=== PATIENT | male | born 1960 | race Caucasian/White ===

== ENCOUNTER 2018-04-08 22:38 | Inpatient (IN) | payer OTHER ==
[2018-04-08 23:41] LABS: ADD MAN DIFF? NO
[2018-04-08 23:42] LABS: ABNORMAL IP MESSAGE 1; BASOPHILS % 0.2 % (0.0-2.0); EOSINOPHILS # 0.1 10^3/ul (0.0-0.5); EOSINOPHILS % 0.5 % (0.0-7.0); HEMATOCRIT 23.7 % (42.0-52.0); LYMPHOCYTES # 1.8 10^3/ul (0.8-2.9); LYMPHOCYTES % 13.4 % (15.0-51.0); MEAN CORPUSCULAR HEMOGLOBIN 23.5 pg (29.0-33.0); MEAN CORPUSCULAR HGB CONC 29.5 g/dl (32.0-37.0); MEAN CORPUSCULAR VOLUME 79.5 fl (82.0-101.0); MONOCYTE # 0.9 10^3/ul (0.3-0.9); MONOCYTES % 6.3 % (0.0-11.0); NEUTROPHIL # 10.6 10^3/ul (1.6-7.5); NEUTROPHILS % 78.7 % (39.0-77.0); PLATELET COUNT 80 10^3/UL (140-415); POSITIVE DIFF @See below; RED BLOOD COUNT 2.98 10^6/ul (4.70-6.10); RED CELL DISTRIBUTION WIDTH 20.8 % (11.5-14.5)
[2018-04-08 23:42] LABS: WHITE BLOOD COUNT 13.5 10^3/ul (4.8-10.8)
[2018-04-08] MEDS: SOD CHLORIDE 0.9% 500 ML IV (23:54)
[2018-04-08] MEDS: PANTOPRAZOLE IV 80 MG in SOD CHLORIDE 0.9% 100 ML IVPB (23:55)
[2018-04-08] MEDS: OCTREOTIDE 50 MCG in SOD CHLORIDE 0.9% 25 ML IVPB (23:55)
[2018-04-08] MEDS: PANTOPRAZOLE IV 80 MG in SOD CHLORIDE 0.9% 100 ML IV (23:55)
[2018-04-08] MEDS: ONDANSETRON 4 MG INJ IV (23:56)
[2018-04-09] MEDS: OCTREOTIDE 500 MCG in SOD CHLORIDE 0.9% 49 ML IV (00:05)
[2018-04-09 00:06] LABS: ALANINE AMINOTRANSFERASE 24 IU/L (13-69); ALBUMIN 2.3 g/dl (3.3-4.9); ALKALINE PHOSPHATASE 74 IU/L (42-121); ANION GAP 13 (8-16); ASPARTATE AMINO TRANSFERASE 26 IU/L (15-46); BILIRUBIN,INDIRECT 1.6 mg/dl (0-1.1); BILIRUBIN,TOTAL 1.6 mg/dl (0.2-1.3); BLOOD UREA NITROGEN 14 mg/dl (7-20); CALCIUM 7.2 mg/dl (8.4-10.2); CARBON DIOXIDE 19 mmol/L (21-31); CHLORIDE 110 mmol/L (97-110); CREATININE 0.78 mg/dl (0.61-1.24); GLUCOSE 153 mg/dl (70-220); INR 2.03; POTASSIUM 3.7 mmol/L (3.5-5.1); PROTIME 23.4 Sec (11.9-14.9); PT RATIO 1.8; SODIUM 138 mmol/L (135-144); TOTAL PROTEIN 6.1 g/dl (6.1-8.1)
[2018-04-09 00:07] LABS: PARTIAL THROMBOPLASTIN TIME 40.4 Sec (25.0-35.0)
[2018-04-09] MEDS ORDERED: ACETAMINOPHEN 325 MG TAB PO (02:00)
[2018-04-09] MEDS ORDERED: ONDANSETRON 4 MG INJ IV ×2 (02:00→02:30)
[2018-04-09] MEDS: SOD CHLORIDE 0.9% 1,000 ML IV ×2 (02:03→07:10)
[2018-04-09] MEDS ORDERED: NACL 0.9% 3 ML SYG IV (02:30)
[2018-04-09] MEDS ORDERED: ACETAMINOPHEN 650 MG SUPP PR (02:30)
[2018-04-09] MEDS ORDERED: METOCLOPRAMIDE 10 MG INJ IV (02:30)
[2018-04-09 02:40] LABS: HAAIG REFLEX REFLEX FILED
[2018-04-09 02:56] LABS: ETHANOL < 10.0 mg/dl
[2018-04-09 05:13] LABS: HEPATITIS B SURFACE ANTIGEN NEGATIVE (NEGATIVE)
[2018-04-09 05:31] LABS: HEPATITIS B CORE ANTIBODY NEGATIVE (NEGATIVE); HEPATITIS C VIRAL ANTIBODY NEGATIVE (NEGATIVE)
[2018-04-09] MEDS ORDERED: LIDOCAINE 2% (SDV) 5 ML INJ (07:00)
[2018-04-09] MEDS ORDERED: CEFAZOLIN 1 GM INJ (07:00)
[2018-04-09] MEDS: PHYTONADIONE 10 MG/ML INJ IM (07:01)
[2018-04-09] MEDS ORDERED: SUCCINYLCHOLINE CHLORIDE 100 MG/5 ML SYG IV (08:44)
[2018-04-09] MEDS ORDERED: PROPOFOL 20 ML (08:44)
[2018-04-09] MEDS ORDERED: ROCURONIUM 50 MG INJ (08:44)
[2018-04-09] MEDS ORDERED: EPHEDrine 50 MG INJ (08:45)
[2018-04-09] MEDS ORDERED: morphine 2 MG INJ IV ×2 (09:00)
[2018-04-09] MEDS ORDERED: hydrALAzine 20 MG INJ IV (09:00)
[2018-04-09] MEDS ORDERED: morphine 10 MG INJ IV (09:00)
[2018-04-09] MEDS ORDERED: PANTOPRAZOLE IV 80 MG in SOD CHLORIDE 0.9% 100 ML IV ×2 (09:00→12:00)
[2018-04-09] MEDS ORDERED: EPHEDrine SULFATE 50 MG/5 ML SYG IV (09:00)
[2018-04-09] MEDS ORDERED: LABETALOL HCL 20MG INJ IV (09:00)
[2018-04-09] MEDS ORDERED: MIDAZOLAM 1 MG/ML 2 ML INJ (09:46)
[2018-04-09] MEDS: MIDAZOLAM 1 MG/ML 2 ML INJ IV (09:56)
[2018-04-09 10:00] LABS: ADD MAN DIFF? NO
[2018-04-09 10:02] LABS: ABNORMAL IP MESSAGE 1; BASOPHIL # 0.1 10^3/ul (0.0-0.1); BASOPHILS % 0.2 % (0.0-2.0); EOSINOPHILS # 0.1 10^3/ul (0.0-0.5); EOSINOPHILS % 0.3 % (0.0-7.0); HEMATOCRIT 27.4 % (42.0-52.0); HEMOGLOBIN 8.4 g/dl (14.0-18.0); LYMPHOCYTES # 6.6 10^3/ul (0.8-2.9); LYMPHOCYTES % 24.4 % (15.0-51.0); MEAN CORPUSCULAR HEMOGLOBIN 25.2 pg (29.0-33.0); MEAN CORPUSCULAR HGB CONC 30.7 g/dl (32.0-37.0); MEAN CORPUSCULAR VOLUME 82.3 fl (82.0-101.0); MEAN PLATELET VOLUME 10.3 fl (7.4-10.4); MONOCYTE # 1.7 10^3/ul (0.3-0.9); MONOCYTES % 6.3 % (0.0-11.0); NEUTROPHIL # 17.8 10^3/ul (1.6-7.5); NEUTROPHILS % 66.1 % (39.0-77.0); NUCLEATED RED BLOOD CELLS # 0.1 10^3/ul (0.0-0.0); NUCLEATED RED BLOOD CELLS% 0.5 /100WBC (0.0-0.0); PLATELET COUNT 107 10^3/UL (140-415); RED BLOOD COUNT 3.33 10^6/ul (4.70-6.10); RED CELL DISTRIBUTION WIDTH 18.8 % (11.5-14.5)
[2018-04-09 10:02] LABS: WHITE BLOOD COUNT 26.9 10^3/ul (4.8-10.8)
[2018-04-09 10:18] LABS: HEMOGLOBIN A1C 5.2 % (0-5.9)
[2018-04-09] MEDS: OCTREOTIDE 1 MG in DEXTROSE 5% 95 ML IV ×2 (10:18→10:32)
[2018-04-09 10:21] LABS: IRON 41 ug/dl (35-150)
[2018-04-09 10:22] LABS: INR 2.05; PROTIME 23.6 Sec (11.9-14.9); PT RATIO 1.8
[2018-04-09 10:24] LABS: ALANINE AMINOTRANSFERASE 28 IU/L (13-69); ALBUMIN 2.3 g/dl (3.3-4.9); ALBUMIN/GLOBULIN RATIO 0.57; ALKALINE PHOSPHATASE 84 IU/L (42-121); ANION GAP 14 (8-16); ASPARTATE AMINO TRANSFERASE 30 IU/L (15-46); BILIRUBIN,INDIRECT 1.8 mg/dl (0-1.1); BILIRUBIN,TOTAL 1.8 mg/dl (0.2-1.3); BLOOD UREA NITROGEN 18 mg/dl (7-20); CALCIUM 6.2 mg/dl (8.4-10.2); CARBON DIOXIDE 16 mmol/L (21-31); CHLORIDE 118 mmol/L (97-110); CHOLESTEROL 75 mg/dl (100-200); CREATININE 0.86 mg/dl (0.61-1.24); GLUCOSE 148 mg/dl (70-220); HDL CHOLESTEROL 25 mg/dl (30-78); LDL CHOLESTEROL,CALCULATED 29 mg/dl; MAGNESIUM 1.6 mg/dl (1.7-2.5); SODIUM 141 mmol/L (135-144); TOTAL PROTEIN 6.3 g/dl (6.1-8.1); TRIGLYCERIDES 103 mg/dl (0-149)
[2018-04-09] MEDS ORDERED: LORAZEPAM 2 MG INJ (10:24)
[2018-04-09 10:29] LABS: POTASSIUM 6.5 mmol/L (3.5-5.1)
[2018-04-09 10:31] LABS: % IRON SATURATION 15 % SAT (22-52); TOTAL IRON BINDING CAPACITY 282 ug/dl (241-421)
[2018-04-09] MEDS: LORAZEPAM 2 MG INJ IV ×2 (10:36→16:17)
[2018-04-09 11:22] LABS: AADO2 Arterial 610.9 mmHg (7.0-24.0); Allen Test ACCEPTAB; Arterial Base Excess -11.4 mmol/L (-3.0-3); Arterial Blood Gas Oxygen Sat 85.7 mmHG (95.0-98.0); Arterial COHb 0.4 % (0.0-3.0); Arterial Fraction of Oxyhgb 84.9 % (93.0-99.0); Arterial MetHb 0.5 % (0.0-1.5); Arterial Total Hemglobin 9.1 g/dl (12.0-18.0); Arterial pCO2 42.7 mmhg (35-45); MODE VENT - AC; Site Right Radial
[2018-04-09] MEDS: MIDAZOLAM (DRIP) 50 mg/50 mL 50 ML IV ×2 (11:29→16:27)
[2018-04-09] MEDS ORDERED: NA BICARBONATE 8.4% 50 ML SYG (11:34)
[2018-04-09] MEDS: NA BICARBONATE 8.4% 50 ML SYG IV (11:49)
[2018-04-09 11:56] LABS: CARCINOEMBRYONIC ANTIGEN 1.2 ng/ml (0.0-5.0)
[2018-04-09 12:01] LABS: ALPHA FETOPROTEIN 1.82 IU/L (0.00-7.21)
[2018-04-09] MEDS: MAGNESIUM SULFATE 2 GM/50 ML 50 ML IVPB (12:02)
[2018-04-09] MEDS: PANTOPRAZOLE IV 80 MG in SOD CHLORIDE 0.9% 100 ML IV ×2 (12:29→22:48)
[2018-04-09 12:56] LABS: THYROID STIMULATING HORMONE 0.563 MIU/L (0.465-4.680)
[2018-04-09] MEDS: NA POLYST SULFON 15 GM/60 ML BTL NGT (15:18)
[2018-04-09 15:35] LABS: POTASSIUM 7.3 mmol/L (3.5-5.1)
[2018-04-09] MEDS ORDERED: DEXTROSE 50% 50 ML SYRINGE IV (16:00)
[2018-04-09] MEDS: SODIUM BICARBONATE (IV ADD) 100 MEQ in DEXTROSE 5%-0.45% NACL 900 ML IV ×2 (16:14→22:49)
[2018-04-09 17:09] LABS: AADO2 Arterial 317.3 mmHg (7.0-24.0); Allen Test ACCEPTAB; Arterial Base Excess -7.7 mmol/L (-3.0-3); Arterial Blood Gas Oxygen Sat 99.4 mmHG (95.0-98.0); Arterial COHb 0.3 % (0.0-3.0); Arterial Fraction of Oxyhgb 98.6 % (93.0-99.0); Arterial HCO3 16.7 mmol/L (22.0-26.0); Arterial MetHb 0.5 % (0.0-1.5); Arterial Total Hemglobin 8.8 g/dl (12.0-18.0); Arterial pCO2 29.5 mmhg (35-45); MODE VENT - AC; Site Right Radial
[2018-04-09] MEDS: CALCIUM GLUCONATE 10% 1 GM in DEXTROSE 5% 100 ML IVPB (17:17)
[2018-04-09] MEDS: INSULIN REGULAR, HUMAN 100 UNIT/1 ML 3ML VIAL IVP (17:20)
[2018-04-09 18:01] LABS: ADD MAN DIFF? NO
[2018-04-09 18:04] LABS: ABNORMAL IP MESSAGE 1; BASOPHILS % 0.1 % (0.0-2.0); EOSINOPHILS % 0.1 % (0.0-7.0); HEMATOCRIT 24.8 % (42.0-52.0); HEMOGLOBIN 7.6 g/dl (14.0-18.0); LYMPHOCYTES # 2.3 10^3/ul (0.8-2.9); LYMPHOCYTES % 13.5 % (15.0-51.0); MEAN CORPUSCULAR HEMOGLOBIN 25.9 pg (29.0-33.0); MEAN CORPUSCULAR HGB CONC 30.6 g/dl (32.0-37.0); MEAN CORPUSCULAR VOLUME 84.4 fl (82.0-101.0); MONOCYTE # 1.3 10^3/ul (0.3-0.9); MONOCYTES % 7.4 % (0.0-11.0); NEUTROPHIL # 13.4 10^3/ul (1.6-7.5); NEUTROPHILS % 78.2 % (39.0-77.0); NUCLEATED RED BLOOD CELLS # 0.1 10^3/ul (0.0-0.0); NUCLEATED RED BLOOD CELLS% 0.5 /100WBC (0.0-0.0); POSITIVE DIFF @See below; RED BLOOD COUNT 2.94 10^6/ul (4.70-6.10); RED CELL DISTRIBUTION WIDTH 17.7 % (11.5-14.5)
[2018-04-09 18:04] LABS: WHITE BLOOD COUNT 17.1 10^3/ul (4.8-10.8)
[2018-04-09 18:12] LABS: PLATELET COUNT 76 10^3/UL (140-415)
[2018-04-09 19:37] LABS: IMMEDIATE SPIN CROSSMATCH 1
[2018-04-09 21:37] LABS: POTASSIUM 5.3 mmol/L (3.5-5.1)
[2018-04-10] MEDS: OCTREOTIDE 1 MG in DEXTROSE 5% 95 ML IV ×2 (00:53→16:48)
[2018-04-10] MEDS: MIDAZOLAM (DRIP) 50 mg/50 mL 50 ML IV ×3 (01:43→16:44)
[2018-04-10 01:50] LABS: ADD MAN DIFF? NO
[2018-04-10 01:59] LABS: ABNORMAL IP MESSAGE 1; BASOPHILS % 0.2 % (0.0-2.0); EOSINOPHILS % 0.3 % (0.0-7.0); HEMATOCRIT 27.6 % (42.0-52.0); LYMPHOCYTES # 1.7 10^3/ul (0.8-2.9); LYMPHOCYTES % 14.7 % (15.0-51.0); MEAN CORPUSCULAR HEMOGLOBIN 26.8 pg (29.0-33.0); MEAN CORPUSCULAR HGB CONC 32.6 g/dl (32.0-37.0); MEAN CORPUSCULAR VOLUME 82.1 fl (82.0-101.0); MONOCYTE # 1.1 10^3/ul (0.3-0.9); MONOCYTES % 9.8 % (0.0-11.0); NEUTROPHIL # 8.6 10^3/ul (1.6-7.5); NEUTROPHILS % 74.2 % (39.0-77.0); NUCLEATED RED BLOOD CELLS # 0.1 10^3/ul (0.0-0.0); NUCLEATED RED BLOOD CELLS% 0.4 /100WBC (0.0-0.0); POSITIVE DIFF @See below; RED BLOOD COUNT 3.36 10^6/ul (4.70-6.10); RED CELL DISTRIBUTION WIDTH 16.9 % (11.5-14.5)
[2018-04-10 01:59] LABS: WHITE BLOOD COUNT 11.5 10^3/ul (4.8-10.8)
[2018-04-10 02:01] LABS: PLATELET COUNT 58 10^3/UL (140-415)
[2018-04-10] MEDS: SOD CHLORIDE 0.9% 1,000 ML IV ×2 (02:03→10:54)
[2018-04-10] MEDS: morphine 2 MG INJ IV (04:34)
[2018-04-10 04:49] LABS: ADD MAN DIFF? NO
[2018-04-10 04:53] LABS: WHITE BLOOD COUNT 10.6 10^3/ul (4.8-10.8)
[2018-04-10 04:53] LABS: ABNORMAL IP MESSAGE 1; BASOPHILS % 0.2 % (0.0-2.0); EOSINOPHILS % 0.3 % (0.0-7.0); HEMATOCRIT 26.8 % (42.0-52.0); HEMOGLOBIN 8.7 g/dl (14.0-18.0); LYMPHOCYTES # 1.6 10^3/ul (0.8-2.9); LYMPHOCYTES % 14.9 % (15.0-51.0); MEAN CORPUSCULAR HEMOGLOBIN 26.7 pg (29.0-33.0); MEAN CORPUSCULAR HGB CONC 32.5 g/dl (32.0-37.0); MEAN CORPUSCULAR VOLUME 82.2 fl (82.0-101.0); MEAN PLATELET VOLUME 9.6 fl (7.4-10.4); MONOCYTES % 9.4 % (0.0-11.0); NEUTROPHIL # 7.9 10^3/ul (1.6-7.5); NEUTROPHILS % 74.4 % (39.0-77.0); NUCLEATED RED BLOOD CELLS # 0.1 10^3/ul (0.0-0.0); NUCLEATED RED BLOOD CELLS% 0.6 /100WBC (0.0-0.0); PLATELET COUNT 41 10^3/UL (140-415); POSITIVE DIFF @See below; RED BLOOD COUNT 3.26 10^6/ul (4.70-6.10); RED CELL DISTRIBUTION WIDTH 16.8 % (11.5-14.5)
[2018-04-10 05:12] LABS: INR 1.92; PROTIME 22.4 Sec (11.9-14.9); PT RATIO 1.8
[2018-04-10 05:24] LABS: ALANINE AMINOTRANSFERASE 25 IU/L (13-69); ALBUMIN 1.9 g/dl (3.3-4.9); ALBUMIN/GLOBULIN RATIO 0.54; ALKALINE PHOSPHATASE 52 IU/L (42-121); ANION GAP 11 (8-16); ASPARTATE AMINO TRANSFERASE 29 IU/L (15-46); BILIRUBIN,INDIRECT 2.1 mg/dl (0-1.1); BILIRUBIN,TOTAL 2.1 mg/dl (0.2-1.3); BLOOD UREA NITROGEN 34 mg/dl (7-20); CALCIUM 6.7 mg/dl (8.4-10.2); CARBON DIOXIDE 19 mmol/L (21-31); CHLORIDE 117 mmol/L (97-110); CREATININE 1.76 mg/dl (0.61-1.24); GLUCOSE 177 mg/dl (70-220); MAGNESIUM 2.2 mg/dl (1.7-2.5); POTASSIUM 4.7 mmol/L (3.5-5.1); SODIUM 142 mmol/L (135-144); TOTAL PROTEIN 5.4 g/dl (6.1-8.1)
[2018-04-10 06:53] LABS: TYPE AND SCREEN 1
[2018-04-10] MEDS: PANTOPRAZOLE IV 80 MG in SOD CHLORIDE 0.9% 100 ML IV ×3 (07:30→23:57)
[2018-04-10 07:40] LABS: AADO2 Arterial 189.6 mmHg (7.0-24.0); Allen Test ACCEPTAB; Arterial Base Excess -3.6 mmol/L (-3.0-3); Arterial Blood Gas Oxygen Sat 98.4 mmHG (95.0-98.0); Arterial COHb 0.3 % (0.0-3.0); Arterial Fraction of Oxyhgb 97.8 % (93.0-99.0); Arterial HCO3 19.4 mmol/L (22.0-26.0); Arterial MetHb 0.3 % (0.0-1.5); Arterial Total Hemglobin 9.8 g/dl (12.0-18.0); Arterial pCO2 28.1 mmhg (35-45); MODE VENT - AC; Site Right Radial
[2018-04-10 09:34] LABS: IMMEDIATE SPIN CROSSMATCH 1 8
[2018-04-10] MEDS: FUROSEMIDE 40 MG INJ IV (10:51)
[2018-04-10 11:16] LABS: LACTIC ACID 3.2 mmol/L (0.5-2.0)
[2018-04-10 12:41] LABS: HEMATOCRIT 25.5 % (42.0-52.0); HEMOGLOBIN 8.4 g/dl (14.0-18.0)
[2018-04-10] MEDS: PIPER-TAZO 3.375 GM IV (PMX) 100 ML IVPB ×3 (13:33→23:57)
[2018-04-10 16:02] LABS: ADD UMIC YES; UR ASCORBIC ACID NEGATIVE (NEGATIVE); UR BACTERIA FEW /HPF (NONE SEEN); UR BILIRUBIN (Dip) NEGATIVE (NEGATIVE); UR BLOOD (Dip) 3+ mg/dL (NEGATIVE); UR CLARITY CLEAR (CLEAR); UR COLOR YELLOW (YELLOW); UR GLUCOSE (Dip) NEGATIVE (NEGATIVE); UR KETONES (Dip) NEGATIVE (NEGATIVE); UR LEUKOCYTE ESTERASE (Dip) NEGATIVE Leu/ul (NEGATIVE); UR NITRITE (Dip) NEGATIVE (NEGATIVE); UR RBC 107 /HPF (0-5); UR SPECIFIC GRAVITY (Dip) 1.012 (1.003-1.030); UR TOTAL PROTEIN (Dip) NEGATIVE (NEGATIVE); UR UROBILINOGEN (Dip) NEGATIVE (NEGATIVE); UR WBC 8 /HPF (0-5)
[2018-04-10 16:09] LABS: SODIUM,URINE RANDOM 104 mmol/L (30-90)
[2018-04-10 16:18] LABS: CREATININE,URINE RANDOM 57.11 mg/dl (20-370)
[2018-04-10 16:18] LABS: AMPHETAMINE/METHAMPHETAMINE Negative (NEGATIVE); BARBITURATES Negative (NEGATIVE); BENZODIAZEPINES Positive (NEGATIVE); CANNABINOIDS Negative (NEGATIVE); COCAINE Negative (NEGATIVE); OPIATES Positive (NEGATIVE)
[2018-04-10] MEDS: PHYTONADIONE 10 MG/ML INJ SC (17:57)
[2018-04-10 18:47] LABS: HEMOGLOBIN 8.2 g/dl (14.0-18.0)
[2018-04-10 19:09] LABS: INR 1.63; PROTIME 19.7 Sec (11.9-14.9); PT RATIO 1.5
[2018-04-11] MEDS: MIDAZOLAM (DRIP) 50 mg/50 mL 50 ML IV ×3 (00:30→19:43)
[2018-04-11 01:18] LABS: HEMATOCRIT 23.8 % (42.0-52.0); HEMOGLOBIN 7.7 g/dl (14.0-18.0)
[2018-04-11] MEDS: PIPER-TAZO 3.375 GM IV (PMX) 100 ML IVPB ×3 (05:12→19:45)
[2018-04-11 05:27] LABS: AMMONIA 118 umol/l (9-30)
[2018-04-11 05:31] LABS: LACTIC ACID 2.7 mmol/L (0.5-2.0)
[2018-04-11 05:38] LABS: PROTIME 19.4 Sec (11.9-14.9); PT RATIO 1.5
[2018-04-11 06:21] LABS: ALANINE AMINOTRANSFERASE 25 IU/L (13-69); ALBUMIN 2.2 g/dl (3.3-4.9); ALBUMIN/GLOBULIN RATIO 0.66; ALKALINE PHOSPHATASE 50 IU/L (42-121); ANION GAP 15 (8-16); ASPARTATE AMINO TRANSFERASE 26 IU/L (15-46); BILIRUBIN,INDIRECT 1.7 mg/dl (0-1.1); BILIRUBIN,TOTAL 1.7 mg/dl (0.2-1.3); BLOOD UREA NITROGEN 51 mg/dl (7-20); CALCIUM 7.4 mg/dl (8.4-10.2); CARBON DIOXIDE 19 mmol/L (21-31); CHLORIDE 114 mmol/L (97-110); CREATININE 1.94 mg/dl (0.61-1.24); GLUCOSE 124 mg/dl (70-220); MAGNESIUM 2.3 mg/dl (1.7-2.5); POTASSIUM 4.2 mmol/L (3.5-5.1); SODIUM 144 mmol/L (135-144); TOTAL PROTEIN 5.5 g/dl (6.1-8.1)
[2018-04-11 07:02] LABS: ANION GAP 14 (8-16); BLOOD UREA NITROGEN 51 mg/dl (7-20); CALCIUM 7.3 mg/dl (8.4-10.2); CARBON DIOXIDE 20 mmol/L (21-31); CHLORIDE 114 mmol/L (97-110); CREATININE 1.94 mg/dl (0.61-1.24); GLUCOSE 127 mg/dl (70-220); PHOSPHORUS 4.3 mg/dl (2.5-4.9); POTASSIUM 4.2 mmol/L (3.5-5.1); SODIUM 144 mmol/L (135-144)
[2018-04-11 07:46] LABS: AADO2 Arterial 168.6 mmHg (7.0-24.0); Allen Test ACCEPTAB; Arterial Blood Gas Oxygen Sat 98.6 mmHG (95.0-98.0); Arterial COHb 0.3 % (0.0-3.0); Arterial Fraction of Oxyhgb 97.9 % (93.0-99.0); Arterial MetHb 0.4 % (0.0-1.5); Arterial Total Hemglobin 9.6 g/dl (12.0-18.0); Arterial pCO2 29.4 mmhg (35-45); MODE VENT - AC; Site Right Radial
[2018-04-11] MEDS: FUROSEMIDE 40 MG INJ IV (10:10)
[2018-04-11 11:16] LABS: ADD MAN DIFF? NO
[2018-04-11 11:18] LABS: ABNORMAL IP MESSAGE 1; BASOPHILS % 0.4 % (0.0-2.0); EOSINOPHILS # 0.1 10^3/ul (0.0-0.5); EOSINOPHILS % 1.6 % (0.0-7.0); HEMATOCRIT 29.5 % (42.0-52.0); HEMOGLOBIN 9.7 g/dl (14.0-18.0); LYMPHOCYTES # 0.9 10^3/ul (0.8-2.9); LYMPHOCYTES % 18.7 % (15.0-51.0); MEAN CORPUSCULAR HEMOGLOBIN 27.6 pg (29.0-33.0); MEAN CORPUSCULAR HGB CONC 32.9 g/dl (32.0-37.0); MEAN CORPUSCULAR VOLUME 83.8 fl (82.0-101.0); MONOCYTE # 0.5 10^3/ul (0.3-0.9); MONOCYTES % 9.6 % (0.0-11.0); NEUTROPHIL # 3.4 10^3/ul (1.6-7.5); NEUTROPHILS % 68.9 % (39.0-77.0); NUCLEATED RED BLOOD CELLS% 0.4 /100WBC (0.0-0.0); PLATELET COUNT 42 10^3/UL (140-415); POSITIVE DIFF @See below; RED BLOOD COUNT 3.52 10^6/ul (4.70-6.10); RED CELL DISTRIBUTION WIDTH 17.1 % (11.5-14.5)
[2018-04-11] MEDS: LACTULOSE ENEMA 1,000 ML BTL PR ×2 (12:26→21:00)
[2018-04-11] MEDS: OCTREOTIDE 1 MG in DEXTROSE 5% 95 ML IV (12:55)
[2018-04-11] MEDS: PANTOPRAZOLE IV 80 MG in SOD CHLORIDE 0.9% 100 ML IV ×2 (12:55→22:30)
[2018-04-11] MEDS: SOD CHLORIDE 0.9% 1,000 ML IV (12:56)
[2018-04-11 16:11] LABS: ALPHA 1 ANTITRYPSIN 98 mg/dL (83-199)
[2018-04-11 18:35] LABS: HEMATOCRIT 31.2 % (42.0-52.0)
[2018-04-11] MEDS ORDERED: BACITRACIN/POLYMYXIN 28.35 GM OINT TOP (21:00)
[2018-04-11] MEDS: MUPIROCIN 2% 22 GM OINT TOP (21:17)
[2018-04-13 15:57] LABS: CREATININE, RANDOM URINE 68 mg/dL (20-370); MICROALBUMIN 6.3 mg/dL; MICROALBUMIN/CREATININE RATIO 93 (<30)
== END 2018-04-11 22:55 | disposition short-term general hospital (02) | DRG 432 ==
LOC: E/R 22:38 → REC 04-09 05:45 → ICU 04-09 08:00
PROC: 06L38CZ Occlusion of Esophageal Vein with Extraluminal Device, Via Natural or Artificial Opening Endoscopic (ICD-10-PCS; 2018-04-09 07:00)
PROC: 30233N1 Transfusion of Nonautologous Red Blood Cells into Peripheral Vein, Percutaneous Approach (ICD-10-PCS; 2018-04-09 07:00)
PROC: 5A1945Z Respiratory Ventilation, 24-96 Consecutive Hours (ICD-10-PCS; principal; 2018-04-09 07:25)
PROC: 30233K1 Transfusion of Nonautologous Frozen Plasma into Peripheral Vein, Percutaneous Approach (ICD-10-PCS; 2018-04-09 07:25)
PROC: 30233K1 Transfusion of Nonautologous Frozen Plasma into Peripheral Vein, Percutaneous Approach (ICD-10-PCS; 2018-04-09 07:25)
PROC: 30233N1 Transfusion of Nonautologous Red Blood Cells into Peripheral Vein, Percutaneous Approach (ICD-10-PCS; 2018-04-09 07:25)
PROC: 30233N1 Transfusion of Nonautologous Red Blood Cells into Peripheral Vein, Percutaneous Approach (ICD-10-PCS; 2018-04-09 07:25)
DX: K74.60 Unspecified cirrhosis of liver (principal); I85.11 Secondary esophageal varices with bleeding; N17.0 Acute kidney failure with tubular necrosis; J96.01 Acute respiratory failure with hypoxia; D62 Acute posthemorrhagic anemia; D68.4 Acquired coagulation factor deficiency; K76.6 Portal hypertension; E87.2 Acidosis; E87.3 Alkalosis; E83.42 Hypomagnesemia; K72.90 Hepatic failure, unspecified without coma; E83.51 Hypocalcemia; E87.5 Hyperkalemia; E87.70 Fluid overload, unspecified; E11.9 Type 2 diabetes mellitus without complications; I25.10 Atherosclerotic heart disease of native coronary artery without angina pectoris; Z79.4 Long term (current) use of insulin; Z95.1 Presence of aortocoronary bypass graft; Z87.891 Personal history of nicotine dependence
CPT/HCPCS: 36415; 36430; 36600; 71045; 76705; 76775; 80048; 80053; 80061; 80307; 81001; 81003; 82043; 82103; 82105; 82140; 82378; 82803; 82962; 83036; 83540; 83605; 83735; 84100; 84132; 84155; 84300; 84443; 85014; 85018; 85025; 85610; 85730; 86644; 86704; 86709; 86803; 86850; 86900; 86901; 86920; 87081; 87340; 93005; 94003; 94770; 96372; 96374; 96375; 96376; 99291-25

== ENCOUNTER 2018-08-17 14:23 | Day surgery (SDC) | payer OTHER ==
[2018-08-17] MEDS ORDERED: LIDOCAINE 4% SOLUTION 50 ML BTL (15:31)
[2018-08-17] MEDS ORDERED: PROPOFOL 20 ML (16:12)
[2018-08-17] MEDS ORDERED: LIDOCAINE 2% (SDV) 5 ML INJ (16:12)
== END 2018-08-17 16:53 | disposition home or self-care (01) ==
LOC: GIL 14:23
DX: I85.00 Esophageal varices without bleeding (principal); K29.70 Gastritis, unspecified, without bleeding; I10 Essential (primary) hypertension
CPT/HCPCS: 43239; 88305; 93005